=== PATIENT | female | born 1955 | race American Indian/Alaskan Native ===

== ENCOUNTER 2019-04-15 11:32 | Emergency (ER) | payer MEDICARE ==
[2019-04-15 11:41] VITALS: BP 190/97
--- NOTE | 2019-04-15 11:42 | Event Note ---
ED Screening Note Date of service: 04/15/19 Time: 11:39 ED Screening Note: 63 y/o female having vaginal bleeding and vaginal pain. PMH: DM, HTN,Recently treated fir Trich and herpes. This initial assessment/diagnostic orders/clinical plan/treatment(s) is/are subject to change based on patients health status, clinical progression and re- assessment by fellow clinical providers in the ED. Further treatment and workup at subsequent clinical providers discretion. Patient/guardian urged not to elope from the ED as their condition may be serious if not clinically assessed and managed. Initial orders include:
--- NOTE | 2019-04-15 12:10 | Emergency Department Report ---
ED Female HPI - General Chief complaint: Vaginal Bleeding Stated complaint: BLEEDING/LOSS WEIGHT Time Seen by Provider: 04/15/19 11:37 Source: patient Mode of arrival: Ambulatory Limitations: No Limitations - History of Present Illness Initial comments: Mrs. Deal is a 63-year-old female with past medical history of diabetes mellitus and hypertension who presents with vaginal blisters and vaginal pain. One month ago at [facility], she was diagnosed with Trichomonas and herpes genital. She had negative HIV test. Other testing for STI were negative according to her report. She's also had 1 month of weight loss. She denies vaginal bleeding although she did report this to the triage intake provider. Complaint: other (genital vaginal esions) -: Gradual, month(s) (1) Location: labia Severity: mild Quality: burning Consistency: constant Improves with: none Worsens with: none Are you Now?: No Associated Symptoms: denies other symptoms - Related Data Previous Rx's Medication Instructions Recorded Last Taken Type Clotrimazole [Gyne-Lotrimin] 45 gm VG DAILY #1 cream.appl 08/27/13 Unknown Rx amLODIPine [Norvasc] 15 mg PO DAILY #30 tab 08/27/13 Unknown Rx Acyclovir [Zovirax Tab] 400 mg PO TID 5 Days #15 tab 04/15/19 Unknown Rx amLODIPine [Norvasc] 10 mg PO DAILY 30 Days #30 tab 04/15/19 Unknown Rx hydroCHLOROthiazide [HCTZ] 12.5 mg PO QDAY 30 Days #30 capsule 04/15/19 Unknown Rx Allergies Allergy/AdvReac Type Severity Reaction Status Date / Time No Known Allergies Allergy Unverified 08/27/13 08:16 ED Review of Systems ROS: Stated complaint: BLEEDING/LOSS WEIGHT Other details as noted in HPI Comment: All other systems reviewed and negative Constitutional: denies: fever, malaise Respiratory: denies: cough Cardiovascular: denies: chest pain Gastrointestinal: denies: abdominal pain, nausea, vomiting Genitourinary: denies: abnormal menses Skin: rash, lesions ED Past Medical Hx - Past Medical History Previous Medical History?: Yes Hx Hypertension: Yes Hx Diabetes: Yes - Surgical History Past Surgical History?: No - Social History Smoking Status: Current Every Day Smoker Substance Use Type: Alcohol - Medications Home Medications: Home Medications Medication Instructions Recorded Confirmed Last Taken Type Clotrimazole [Gyne-Lotrimin] 45 gm VG DAILY #1 cream.appl 08/27/13 Unknown Rx amLODIPine [Norvasc] 15 mg PO DAILY #30 tab 08/27/13 Unknown Rx Acyclovir [Zovirax Tab] 400 mg PO TID 5 Days #15 tab 04/15/19 Unknown Rx amLODIPine [Norvasc] 10 mg PO DAILY 30 Days #30 tab 04/15/19 Unknown Rx hydroCHLOROthiazide [HCTZ] 12.5 mg PO QDAY 30 Days #30 capsule 04/15/19 Unknown Rx ED Physical Exam - General Limitations: No Limitations General appearance: alert, in no apparent distress - Head Head exam: Present: atraumatic, normocephalic - Eye Eye exam: Present: normal appearance - ENT ENT exam: Present: mucous membranes moist - Neck Neck exam: Present: normal inspection, full ROM - Respiratory Respiratory exam: Present: normal lung sounds bilaterally. Absent: respiratory distress - Cardiovascular Cardiovascular Exam: Present: regular rate, normal rhythm. Absent: systolic murmur, diastolic murmur, rubs, gallop - GI/Abdominal GI/Abdominal exam: Present: soft, normal bowel sounds. Absent: distended, tenderness, guarding, rebound - Extremities Exam Extremities exam: Present: normal inspection - Back Exam Back exam: Present: normal inspection - Neurological Exam Neurological exam: Present: alert, oriented X3 - Psychiatric Psychiatric exam: Present: normal affect, normal mood - Skin Skin exam: Present: warm, dry, intact, normal color. Absent: rash ED Course Vital Signs 04/15/19 11:37 Temperature 98.9 F Pulse Rate 91 H Respiratory 16 Rate Blood Pressure 190/97 O2 Sat by Pulse 97 Oximetry ED Medical Decision Making - Medical Decision Making Mrs. Deal has a history of genital herpes I have prescribed acyclovir. 1 month unintentional weight loss: Will need outpatient workup. I have instructed her to inform her physician as [facility] about this s ymptom Asymptomatic hypertension: I had an extensive conversation with Mrs. Deal regarding the need for compliance with hypertension medication. She understands the risk of stroke kidney disease heart attack. However she explained that she chooses not to take this medication because of side effects including dizziness. She is followed closely at [facility]. I have prescribed amlodipine and hydrochlorothiazide. Critical care attestation.: If time is entered above; I have spent that time in minutes in the direct care of this critically ill patient, excluding procedure time. ED Disposition Clinical Impression: Genital herpes, Unintentional weight loss, Asymptomatic hypertension Disposition: TO HOME OR SELFCARE Is pt being admited?: No Does the pt Need Aspirin: No Condition: Stable Additional Instructions: Please let your primary doctor know about the unintentional weight loss. You will need further testing to determine the cause. Prescriptions: hydroCHLOROthiazide [HCTZ] 12.5 mg PO QDAY 30 Days #30 capsule amLODIPine [Norvasc] 10 mg PO DAILY 30 Days #30 tab Acyclovir [Zovirax Tab] 400 mg PO TID 5 Days #15 tab Referrals: [facility] [Outside] - 3-5 Days
== END 2019-04-15 12:50 | disposition home or self-care (01) ==
LOC: ED 11:32
DX: A60.00 Herpesviral infection of urogenital system, unspecified (principal); I10 Essential (primary) hypertension; R63.4 Abnormal weight loss; E11.9 Type 2 diabetes mellitus without complications; F17.200 Nicotine dependence, unspecified, uncomplicated
CPT/HCPCS: 99282

== ENCOUNTER 2019-11-03 10:30 | Emergency (ER) | payer MEDICARE ==
[2019-11-03 10:54] VITALS: BP 162/93
--- NOTE | 2019-11-03 11:18 | Emergency Department Report ---
ED Female HPI - General Chief complaint: Urogenital-Female Stated complaint: LOWER PAIN Time Seen by Provider: 11/03/19 11:09 Source: patient Mode of arrival: Ambulatory Limitations: No Limitations - History of Present Illness Initial comments: Patient is a 64-year-old female presents emergency room with complaints of dysuria that began 2 weeks ago. She states that she also has vaginal pain secondary to a flare of her herpes per pt. She states that she went to [facility] in either May or June and was diagnosed and treated for herpes. She denies any nausea, vomiting, diarrhea, fever, abdominal pain, vaginal discharge. past medical history of hypertension and diabetes. She states that she went through menopause. She states that she has not been sexually active since her herpes diagnosis. - Related Data Previous Rx's Medication Instructions Recorded Last Taken Type Clotrimazole [Gyne-Lotrimin] 45 gm VG DAILY #1 cream.appl 08/27/13 Unknown Rx amLODIPine 15 mg PO DAILY #30 tab 08/27/13 Unknown Rx Acyclovir [Zovirax Tab] 400 mg PO TID 5 Days #15 tab 04/15/19 Unknown Rx amLODIPine 10 mg PO DAILY 30 Days #30 tab 04/15/19 Unknown Rx hydroCHLOROthiazide [HCTZ] 12.5 mg PO QDAY 30 Days #30 capsule 04/15/19 Unknown Rx Acyclovir [Zovirax Cap] 400 mg PO TID 5 Days #30 cap 11/03/19 Unknown Rx Allergies Allergy/AdvReac Type Severity Reaction Status Date / Time No Known Allergies Allergy Unverified 08/27/13 08:16 ED Review of Systems ROS: Stated complaint: LOWER PAIN Other details as noted in HPI Comment: All other systems reviewed and negative ED Past Medical Hx - Past Medical History Previous Medical History?: Yes Hx Hypertension: Yes Hx Diabetes: Yes - Social History Smoking Status: Current Every Day Smoker Substance Use Type: None - Medications Home Medications: Home Medications Medication Instructions Recorded Confirmed Last Taken Type Clotrimazole [Gyne-Lotrimin] 45 gm VG DAILY #1 cream.appl 08/27/13 Unknown Rx amLODIPine 15 mg PO DAILY #30 tab 08/27/13 Unknown Rx Acyclovir [Zovirax Tab] 400 mg PO TID 5 Days #15 tab 04/15/19 Unknown Rx amLODIPine 10 mg PO DAILY 30 Days #30 tab 04/15/19 Unknown Rx hydroCHLOROthiazide [HCTZ] 12.5 mg PO QDAY 30 Days #30 capsule 04/15/19 Unknown Rx Acyclovir [Zovirax Cap] 400 mg PO TID 5 Days #30 cap 11/03/19 Unknown Rx ED Physical Exam - General Limitations: No Limitations General appearance: alert, in no apparent distress - Head Head exam: Present: atraumatic, normocephalic - Eye Eye exam: Present: normal appearance - ENT ENT exam: Present: mucous membranes moist - Respiratory Respiratory exam: Present: normal lung sounds bilaterally. Absent: respiratory distress, wheezes, rales, rhonchi, stridor, chest wall tenderness, accessory muscle use, decreased breath sounds, prolonged expiratory - Cardiovascular Cardiovascular Exam: Present: regular rate, normal rhythm, normal heart sounds. Absent: systolic murmur, diastolic murmur, rubs, gallop - GI/Abdominal GI/Abdominal exam: Present: soft, normal bowel sounds. Absent: distended, tenderness, guarding, rebound, rigid - External exam: Present: lesions (small vesicles on erythematous base present to the bilateral labia and the external vaginal canal), other (marketing intern: RADHA Teague) Speculum exam: Present: other (deferred) - Neurological Exam Neurological exam: Present: alert, oriented X3 - Psychiatric Psychiatric exam: Present: normal affect, normal mood - Skin Skin exam: Present: warm, dry, intact ED Course Vital Signs 11/03/19 10:53 Temperature 98 F Pulse Rate 83 Respiratory 16 Rate Blood Pressure 162/93 O2 Sat by Pulse 99 Oximetry ED Medical Decision Making - Lab Data Lab Results 11/03/19 Range/Units 11:22 Urine Color Yellow (Yellow) Urine Turbidity Clear (Clear) Urine pH 5.0 (5.0-7.0) Ur Specific [place] 1.036 H (1.003-1.030) Urine Protein 30 mg/dl (Negative) mg/dL Urine Glucose (UA) >=500 (Negative) mg/dL Urine Ketones 20 (Negative) mg/dL Urine Blood Neg (Negative) Urine Nitrite Neg (Negative) Urine Bilirubin Neg (Negative) Urine Urobilinogen 4.0 (<2.0) mg/dL Ur Leukocyte Esterase Neg (Negative) Urine WBC (Auto) 1.0 (0.0-6.0) /HPF Urine RBC (Auto) 4.0 (0.0-6.0) /HPF U Epithel Cells (Auto) 1.0 (0-13.0) /HPF Urine Mucus Few /HPF - Medical Decision Making Patient is a 64-year-old female presents emergency room with complaints of dysuria that began 2 weeks ago. She states that she also has vaginal pain secondary to a flare of her herpes per pt. She states that she went to [facility] in either May or June and was diagnosed and treated for herpes. She denies any nausea, vomiting, diarrhea, fever, abdominal pain, vaginal discharge. past medical history of hypertension and diabetes. She states that she went through menopause. She states that she has not been sexually active since her herpes diagnosis. VSS. UA without evidence of UTI. she states that she feels the burning sensation externally where she has lesions present. on exam: small vesicles on erythematous base present to the bilateral labia and the external vaginal canal, marketing intern: RADHA Teague. Examination consistent with herpes labialis outbreak. This is her second outbreak since her diagnosis in either May or June. Patient given prescription for acyclovir. She states that she has not been sexually active since she was evaluated for STDs and diagnosed with herpes at [facility]. Patient will be referred to her primary care doctor and an TRADES HELPER for further evaluation. advised pt please take medication as prescribed. Please do not engage in sexual intercourse. Please follow-up with a primary care doctor. Please follow-up with your TRADES HELPER. Please have a full STD panel performed if you have not already. Return to the emergency room for any new or worsening symptoms. - Differential Diagnosis UTI, herpes flare Critical care attestation.: If time is entered above; I have spent that time in minutes in the direct care of this critically ill patient, excluding procedure time. ED Disposition Clinical Impression: Vaginal pain, Herpes labialis Disposition: DC-01 TO HOME OR SELFCARE Is pt being admited?: No Does the pt Need Aspirin: No Condition: Stable Instructions: Genital Herpes Simplex (ED) Additional Instructions: Please take medication as prescribed. Please do not engage in sexual intercourse. Please follow-up with a primary care doctor. Please follow-up with your TRADES HELPER. Please have a full STD panel performed if you have not already. Return to the emergency room for any new or worsening symptoms. Prescriptions: Acyclovir [Zovirax Cap] 400 mg PO TID 5 Days #30 cap Referrals: [facility] [Other] - 2-3 Days [facility] [Provider Group] - 2-3 Days Time of Disposition: 12:24 Print Language: SLOVENIAN
[2019-11-03 11:50] LABS: Bilirubin,Urine NEG (Negative); Blood,Urine NEG (Negative); Color,Urine Yellow (Yellow); Mucus,Urine FEW /HPF
== END 2019-11-03 12:39 | disposition home or self-care (01) ==
LOC: ED 10:30
DX: B00.1 Herpesviral vesicular dermatitis (principal); I10 Essential (primary) hypertension; E11.9 Type 2 diabetes mellitus without complications; F17.200 Nicotine dependence, unspecified, uncomplicated; Z79.899 Other long term (current) drug therapy
CPT/HCPCS: 81001

== ENCOUNTER 2020-06-20 09:46 | Emergency (ER) | payer MEDICARE ==
[2020-06-20 09:54] VITALS: BP 160/97
--- NOTE | 2020-06-20 11:09 | XRay Report ---
CHEST 2 VIEWS INDICATION / CLINICAL INFORMATION: leg swelling. COMPARISON: None available. FINDINGS: SUPPORT DEVICES: None. HEART / MEDIASTINUM: No significant abnormality. LUNGS / PLEURA: No significant pulmonary or pleural abnormality. No pneumothorax. ADDITIONAL FINDINGS: Mild sigmoid thoracic scoliosis. Remote left lateral rib deformities. IMPRESSION: 1. No acute findings. Signer Name: Geo Cloud MD Signed: 06/20/2020 11:05 AM Workstation Name: [id number]
[2020-06-20 11:12] LABS: Basophils # (Auto) 0.1 K/mm3 (0.0-0.1); Basophils % (Auto) 0.8 % (0.0-1.8); Eosinophils % (Auto) 0.6 % (0.0-4.3); Lymphocytes # (Auto) 1.8 K/mm3 (1.2-5.4); Mean Corpuscular HGB Conc 34 % (30-34); Mean Corpuscular Volume 96 fl (79-97); Monocytes # (Auto) 0.8 K/mm3 (0.0-0.8); Monocytes % (Auto) 11.8 % (0.0-7.3); Platelet Count 188 K/mm3 (140-440); Red Blood Count 4.58 M/mm3 (3.65-5.03); Red Cell Distribution Width 12.5 % (13.2-15.2)
[2020-06-20 11:38] LABS: Alanine Aminotransferase 136 units/L (7-56); Albumin 3.5 g/dL (3.9-5); Blood Urea Nitrogen 11 mg/dL (7-17); Calcium 9.5 mg/dL (8.4-10.2); Hemolysis Index 47
[2020-06-20 11:44] LABS: BUN/Creatinine Ratio 28
[2020-06-20] MEDS ORDERED: SODIUM CHLORIDE 0.9% 1000 ML 1,000 ML IV ONE (20:23)
--- NOTE | 2020-06-21 00:31 | Emergency Department Report ---
ED General Adult HPI - General Chief complaint: Dyspnea/Respdistress Stated complaint: FLUID IN LEGS Time Seen by Provider: 06/20/20 20:22 Source: patient Mode of arrival: Ambulatory Limitations: No Limitations - History of Present Illness Initial comments: Pt is a 65 y/o aaf with hx of DM and HTN who presents for medication refill , pt states she out or januvia and glipizide. DM II is currently controlled with glipized, metformin, januvia , pt denies symptoms at this time. pt is currently tolerating po intake without n/v no dizziness, no light headedness, no fever or chills, pt states seen earlier today but was root to see physician. Severity scale (0 -10): 10 - Related Data Previous Rx's Medication Instructions Recorded Last Taken Type Clotrimazole [Gyne-Lotrimin] 45 gm VG DAILY #1 cream.appl 08/27/13 Unknown Rx amLODIPine 15 mg PO DAILY #30 tab 08/27/13 Unknown Rx Acyclovir [Zovirax Tab] 400 mg PO TID 5 Days #15 tab 04/15/19 Unknown Rx Acyclovir [Zovirax Cap] 400 mg PO TID 5 Days #30 cap 11/03/19 Unknown Rx Sitagliptin Phosphate [Januvia] 100 mg PO DAILY #30 tablet 06/21/20 Unknown Rx amLODIPine 10 mg PO DAILY 30 Days #30 tab 06/21/20 Unknown Rx glipiZIDE [Glucotrol] 10 mg PO BID #60 tab 06/21/20 Unknown Rx hydroCHLOROthiazide [HCTZ] 12.5 mg PO QDAY 30 Days #30 capsule 06/21/20 Unknown Rx Allergies Allergy/AdvReac Type Severity Reaction Status Date / Time No Known Allergies Allergy Unverified 08/27/13 08:16 ED Review of Systems ROS: Stated complaint: FLUID IN LEGS Other details as noted in HPI Constitutional: denies: chills, fever Eyes: denies: eye pain, eye discharge, vision change ENT: denies: ear pain, throat pain Respiratory: denies: cough, shortness of breath, wheezing Cardiovascular: denies: chest pain, palpitations Endocrine: no symptoms reported Gastrointestinal: denies: abdominal pain, nausea, diarrhea Genitourinary: denies: urgency, dysuria, discharge Musculoskeletal: denies: back pain, joint swelling, arthralgia Skin: denies: rash, lesions Neurological: denies: headache, weakness, paresthesias Psychiatric: denies: anxiety, depression Hematological/Lymphatic: denies: easy bleeding, easy bruising ED Past Medical Hx - Past Medical History Previous Medical History?: Yes Hx Hypertension: Yes Hx Diabetes: Yes - Surgical History Past Surgical History?: No - Social History Smoking Status: Current Every Day Smoker Substance Use Type: None - Medications Home Medications: Home Medications Medication Instructions Recorded Confirmed Last Taken Type Clotrimazole [Gyne-Lotrimin] 45 gm VG DAILY #1 cream.appl 08/27/13 Unknown Rx amLODIPine 15 mg PO DAILY #30 tab 08/27/13 Unknown Rx Acyclovir [Zovirax Tab] 400 mg PO TID 5 Days #15 tab 04/15/19 Unknown Rx Acyclovir [Zovirax Cap] 400 mg PO TID 5 Days #30 cap 11/03/19 Unknown Rx Sitagliptin Phosphate [Januvia] 100 mg PO DAILY #30 tablet 06/21/20 Unknown Rx amLODIPine 10 mg PO DAILY 30 Days #30 tab 06/21/20 Unknown Rx glipiZIDE [Glucotrol] 10 mg PO BID #60 tab 06/21/20 Unknown Rx hydroCHLOROthiazide [HCTZ] 12.5 mg PO QDAY 30 Days #30 capsule 06/21/20 Unknown Rx ED Physical Exam - General Limitations: No Limitations General appearance: alert, in no apparent distress - Head Head exam: Present: atraumatic, normocephalic - Eye Eye exam: Present: normal appearance, EOMI Pupils: Present: normal accommodation - ENT ENT exam: Present: mucous membranes moist - Neck Neck exam: Present: normal inspection, full ROM. Absent: tenderness, lymphadenopathy - Respiratory Respiratory exam: Present: normal lung sounds bilaterally, chest wall tenderness. Absent: respiratory distress, wheezes, stridor - Cardiovascular Cardiovascular Exam: Present: regular rate, normal rhythm, normal heart sounds. Absent: systolic murmur, diastolic murmur, rubs, gallop - GI/Abdominal GI/Abdominal exam: Present: soft, distended, tenderness, normal bowel sounds, bruit. Absent: guarding, rebound, rigid, hernia - Rectal Rectal exam: Present: deferred - External exam: Present: normal external exam. Absent: erythema, swelling Speculum exam: Present: normal speculum exam - Extremities Exam Extremities exam: Present: normal inspection, full ROM, normal capillary refill - Back Exam Back exam: Present: normal inspection, full ROM, vertebral tenderness. Absent: tenderness, CVA tenderness (R), CVA tenderness (L) - Neurological Exam Neurological exam: Present: alert, oriented X3, CN II-XII intact, normal gait, reflexes normal. Absent: motor sensory deficit - Psychiatric Psychiatric exam: Present: normal affect, normal mood. Absent: depressed, homicidal ideation, suicidal ideation - Skin Skin exam: Present: warm, dry, intact, normal color. Absent: rash ED Course Vital Signs 06/20/20 09:49 Temperature 98.8 F Pulse Rate 103 H Respiratory 16 Rate Blood Pressure 160/97 [Right] O2 Sat by Pulse 96 Oximetry ED Medical Decision Making - Lab Data Result diagrams: 06/20/20 10:30 06/20/20 10:30 - Radiology Data Radiology results: report reviewed, image reviewed Findings Reporting MD: Geo Cloud Dictation Time: June 20, 2020 10:05 Postal Superintendent: Not available Stitch Bonder Machine Operator Helper Date: CHEST 2 VIEWS INDICATION / CLINICAL INFORMATION: leg swelling. COMPARISON: None available. FINDINGS: SUPPORT DEVICES: None. HEART / MEDIASTINUM: No significant abnormality. LUNGS / PLEURA: No significant pulmonary or pleural abnormality. No pneumothorax. ADDITIONAL FINDINGS: Mild sigmoid thoracic scoliosis. Remote left lateral rib deformities. IMPRESSION: 1. No acute findings. Signer Name: Geo Cloud MD Signed: 06/20/2020 10:05 AM Workstation Name: [id number] - Medical Decision Making Patient states symptoms are improved. Blood sugar is improved. Patient is tolerating p.o. intake without symptoms. Plan refill medications as requested. Patient will follow-up with PCP in 2 to 3 days. Patient verbalizes agreement and understanding with discharge plan. Patient DC'd home in stable condition at this time Critical care attestation.: If time is entered above; I have spent that time in minutes in the direct care of this critically ill patient, excluding procedure time. ED Disposition Clinical Impression: Hyperglycemia, Medication refill Disposition: DC-01 TO HOME OR SELFCARE Is pt being admited?: No Does the pt Need Aspirin: No Condition: Stable Instructions: Hyperglycemia, [id number]-Ewul, Blood Glucose Monitoring, Adult Prescriptions: amLODIPine 10 mg PO DAILY 30 Days #30 tab glipiZIDE [Glucotrol] 10 mg PO BID #60 tab hydroCHLOROthiazide [HCTZ] 12.5 mg PO QDAY 30 Days #30 capsule Sitagliptin Phosphate [Januvia] 100 mg PO DAILY #30 tablet Forms: Work/School Release Form(ED) Time of Disposition: 00:45
== END 2020-06-21 01:55 | disposition home or self-care (01) ==
LOC: ED 09:46
DX: E11.65 Type 2 diabetes mellitus with hyperglycemia (principal); I10 Essential (primary) hypertension; F17.200 Nicotine dependence, unspecified, uncomplicated; Z79.899 Other long term (current) drug therapy
CPT/HCPCS: 36415; 71046; 80053; 82962; 83880; 84484; 85025; 93005; 96360; 99284; J7030